=== PATIENT | male | born 1960 | race Caucasian/White ===

== ENCOUNTER 2022-06-11 19:39 | Emergency (ER) | payer BC, MEDICAID, OTHER ==
[2022-06-12] MEDS ORDERED: traMADol 50 MG Tab PO ONE (04:02)
== END 2022-06-12 05:58 ==
LOC: JD.ED 19:39
DX: S06.5X9A Traumatic subdural hemorrhage with loss of consciousness of unspecified duration, initial encounter (principal); S00.01XA Abrasion of scalp, initial encounter; M54.12 Radiculopathy, cervical region; M25.511 Pain in right shoulder; M25.512 Pain in left shoulder; J45.909 Unspecified asthma, uncomplicated; Z87.891 Personal history of nicotine dependence; W00.0XXA Fall on same level due to ice and snow, initial encounter; Y92.481 Parking lot as the place of occurrence of the external cause
CPT/HCPCS: 70450; 72125; 72128; 99285; A9270; 99284

== ENCOUNTER 2023-03-31 17:14 | Emergency (ER) | payer MEDICARE, MEDICAID ==
[2023-03-31] MEDS ORDERED: tiZANidine 4 MG Tab PO SCH (18:00)
== END 2023-03-31 19:59 | disposition home or self-care (01) ==
LOC: JD.ED 17:14
DX: M62.830 Muscle spasm of back (principal); M62.838 Other muscle spasm; M19.90 Unspecified osteoarthritis, unspecified site
CPT/HCPCS: 99284; A9270-GY

== ENCOUNTER 2024-01-01 15:34 | Emergency (ER) | payer MEDICARE, MEDICAID ==
[2024-01-01 16:51] LABS: BASOPHILS ABSOLUTE AUTO 0.1 K/mm3 (0.0-0.2); BASOPHILS PERCENT AUTO 0.5 % (0.0-1.0); EOSINOPHILS ABSOLUTE AUTO 0.3 K/mm3 (0.0-0.4); EOSINOPHILS PERCENT AUTO 2.6 % (0.0-6.0); HEMATOCRIT 49.1 % (42.0-52.0); HEMOGLOBIN 15.2 gm/dl (14.0-18.0); IMMATURE GRAN ABSOLUTE AUTO 0.04 K/mm3 (0.00-0.05); IMMATURE GRAN PERCENT AUTO 0.4 % (0.0-0.4); LYMPHOCYTES ABSOLUTE AUTO 0.5 K/mm3 (1.0-4.8); LYMPHOCYTES PERCENT AUTO 4.8 % (24.0-44.0); MEAN CORPUSCULAR HEMOGLOBIN 24.8 pg (28.0-32.0); MEAN PLATELET VOLUME 9.7 fl (9.4-12.4); MONOCYTES ABSOLUTE AUTO 0.8 K/mm3 (0.0-0.8); NEUTROPHILS ABSOLUTE AUTO 9.6 K/mm3 (1.8-7.7); NEUTROPHILS PERCENT AUTO 84.7 % (41.0-71.0); PLATELET COUNT,PLT 252 K/mm3 (150-400); RED BLOOD CELL COUNT 6.14 M/mm3 (4.52-5.90); WHITE BLOOD CELL COUNT,WBC 11.36 K/mm3 (3.9-11.3)
[2024-01-01] MEDS ORDERED: Sodium Chloride 0.9% 100 ML IV SCH (17:00)
[2024-01-01 17:01] LABS: ALANINE AMINOTRANSFERASE,ALT 24 U/L (16-63); ALKALINE PHOSPHATASE 99 U/L (46-116); ANION GAP 16.4 (5-15); ASPARTATE AMNIOTRANSFERASE,AST 16 U/L (15-37); BILIRUBIN TOTAL 0.7 mg/dL (0.2-1.0); BLOOD UREA NITROGEN,BUN 14 mg/dL (7-18); BUN/CREATININE RATIO 15.6 (14-18); CARBON DIOXIDE,CO2 25 mEq/L (21-32); CHLORIDE,CL 102 mEq/L (98-107); CREATININE 0.9 mg/dL (0.7-1.3); ESTIMATED GFR 96 mL/min (>60); GLUCOSE RANDOM 119 mg/dL (70-99); POTASSIUM,K 4.4 mEq/L (3.5-5.1); SODIUM,NA 139 mEq/L (136-145)
[2024-01-01 17:03] LABS: INR 1.02; PROTHROMBIN TIME 10.8 SECONDS (9.7-12.0)
[2024-01-01 17:07] LABS: TROPONIN I HIGH SENSITIVITY 526 pg/mL (<=76)
[2024-01-01] MEDS: Iopamidol 755 Mg/ML 100 ML Bottle IVPUSH ONE (17:56)
[2024-01-01] MEDS: Heparin Sodium 5,000 Units/ML Vial IVPUSH ONE (18:13)
[2024-01-01] MEDS: Heparin Sodium/D5W 25,000 UNITS/500 ML BAG IV SCH (18:18)
[2024-01-01] MEDS: Sodium Chloride 0.9% 1,000 ML IV ONE (18:21)
[2024-01-01] MEDS: LORazepam 2 MG/ML SDV IVPUSH ONE (18:48)
== END 2024-01-01 20:30 ==
LOC: JD.ED 15:34
DX: I82.411 Acute embolism and thrombosis of right femoral vein (principal); I26.02 Saddle embolus of pulmonary artery with acute cor pulmonale; R09.02 Hypoxemia
CPT/HCPCS: 36415; 71275; 80053; 83880; 84484; 85025; 85610; 85730; 93005; 93971; 96365; 96366; 96375; 99285; J1644; J2060; J7030; Q9967; 93010

== ENCOUNTER 2024-02-14 18:28 | Emergency (ER) | payer MEDICARE, MEDICAID ==
[2024-02-14] MEDS: Albuterol/Ipratropium 3.0-0.5 MG/3 ML Neb Soln NEB ONE (19:18)
[2024-02-14 19:34] LABS: BASOPHILS ABSOLUTE AUTO 0.1 K/mm3 (0.0-0.2); BASOPHILS PERCENT AUTO 0.7 % (0.0-1.0); EOSINOPHILS ABSOLUTE AUTO 0.2 K/mm3 (0.0-0.4); EOSINOPHILS PERCENT AUTO 2.6 % (0.0-6.0); HEMATOCRIT 33.6 % (42.0-52.0); IMMATURE GRAN ABSOLUTE AUTO 0.02 K/mm3 (0.00-0.05); IMMATURE GRAN PERCENT AUTO 0.2 % (0.0-0.4); LYMPHOCYTES ABSOLUTE AUTO 0.7 K/mm3 (1.0-4.8); LYMPHOCYTES PERCENT AUTO 8.7 % (24.0-44.0); MEAN CORPUSCULAR HEMOGLOBIN 21.7 pg (28.0-32.0); MEAN CORPUSCULAR HGB CONC 29.8 g/dl (32.0-36.0); MEAN CORPUSCULAR VOLUME 72.9 fl (83.0-99.0); MEAN PLATELET VOLUME 10.2 fl (9.4-12.4); MONOCYTES ABSOLUTE AUTO 0.7 K/mm3 (0.0-0.8); MONOCYTES PERCENT AUTO 8.7 % (0.0-8.0); NEUTROPHILS ABSOLUTE AUTO 6.6 K/mm3 (1.8-7.7); NEUTROPHILS PERCENT AUTO 79.1 % (41.0-71.0); PLATELET COUNT,PLT 349 K/mm3 (150-400); RED BLOOD CELL COUNT 4.61 M/mm3 (4.52-5.90); WHITE BLOOD CELL COUNT,WBC 8.31 K/mm3 (3.9-11.3)
[2024-02-14 20:05] LABS: A/G RATIO 1.2 (1-2); ALANINE AMINOTRANSFERASE,ALT 34 U/L (16-63); ALBUMIN 3.9 g/dl (3.4-5.0); ALKALINE PHOSPHATASE 65 U/L (46-116); ANION GAP 13.6 (5-15); ASPARTATE AMNIOTRANSFERASE,AST 18 U/L (15-37); BILIRUBIN TOTAL 0.5 mg/dL (0.2-1.0); BLOOD UREA NITROGEN,BUN 8 mg/dL (7-18); BUN/CREATININE RATIO 8.9 (14-18); CALCIUM 8.8 mg/dL (8.5-10.1); CARBON DIOXIDE,CO2 25 mEq/L (21-32); CHLORIDE,CL 105 mEq/L (98-107); CREATININE 0.9 mg/dL (0.7-1.3); ESTIMATED GFR 96 mL/min (>60); GLUCOSE RANDOM 109 mg/dL (70-99); POTASSIUM,K 3.6 mEq/L (3.5-5.1); PROTEIN TOTAL,TP 7.1 g/dl (6.4-8.2); SODIUM,NA 140 mEq/L (136-145); TROPONIN I HIGH SENSITIVITY 5 pg/mL (<=76)
[2024-02-14] MEDS ORDERED: Ketorolac 30 MG/ML SDV IVPUSH ONE (21:49)
[2024-02-14] MEDS: Acetaminophen 325 MG Tab PO ONE (22:18)
== END 2024-02-14 22:35 | disposition home or self-care (01) ==
LOC: JD.ED 18:28
DX: R06.02 Shortness of breath (principal)
CPT/HCPCS: 36415; 71045; 80053; 83880; 84484; 85025; 85379; 94640; 99285; A9270; J7620-GY